=== PATIENT | male | born 1955 | race African-American/Black ===

== ENCOUNTER 2018-02-02 01:26 | Emergency (ER) | payer SELFPAY ==
[~2018-02-02] VITALS: Ht 170.2 cm; Wt 90.7 kg
[2018-02-02 07:31] VITALS: BP 110/83
== END 2018-02-02 07:33 | disposition home or self-care (01) ==
LOC: ER 01:39
DX: F41.9 Anxiety disorder, unspecified (principal); I10 Essential (primary) hypertension; F17.200 Nicotine dependence, unspecified, uncomplicated
CPT/HCPCS: 99284